=== PATIENT | female | born 1980 | race Caucasian/White ===

== ENCOUNTER 2020-03-19 08:46 | Emergency (ER) | payer MEDICAID ==
[~2020-03-19] VITALS: Ht 165.1 cm; Wt 55.5 kg
[~2020-03-19 08:46] MED LIST: ACET650T11 GT; ALBU2.5V13 NEB; ATROPINE OPTH GT; CARB15DR3 RIGHTEYE; CARB15DR91 EACH EAR; DOCU50LI24 GT; DULR RC; ESCI20TA29 GT; FLUT16SP10 NAS; GUAI10SY2 GT; HYPR10GE3 RIGHTEYE; LORA-512 GT; LORA1TAB; MAGN400O6 GT; NAPR220C15 GT; NORE1TAB21 GT; OSC500T GT; POLY17PO10; QUET25TA GT; VALP250C44 GT; ZOV200C GT
[2020-03-19 08:47] VITALS: BP 111/71
== END 2020-03-19 10:07 | disposition home or self-care (01) ==
LOC: ER 08:46
DX: K94.23 Gastrostomy malfunction (principal); G80.9 Cerebral palsy, unspecified; Z98.890 Other specified postprocedural states; Z79.899 Other long term (current) drug therapy; Y83.9 Surgical procedure, unspecified as the cause of abnormal reaction of the patient, or of later complication, without mention of misadventure at the time of the procedure
CPT/HCPCS: 43762; 99284; B4087

== ENCOUNTER 2020-12-25 13:10 | Inpatient (IN) | payer MEDICAID ==
[~2020-12-25] VITALS: Ht 167.6 cm; Wt 50.7 kg
[2020-12-25] MEDS ORDERED: normal saline 1000ml 1,000 ML IV ONE (13:30)
[2020-12-25 13:57] LABS: BASOPHILS % (AUTO) 0.3 % (0-1); EOSINOPHILS # (AUTO) 0.2 X10'3 (0-0.9); EOSINOPHILS % (AUTO) 1.7 % (0-6); HEMATOCRIT 37.9 % (35.0-45.0); HEMOGLOBIN 12.6 g/dl (12.0-16.0); LYMPHOCYTES % (AUTO) 11.3 % (21-51); MEAN CORPUSCULAR HEMOGLOBIN 32.8 PG (27.0-31.0); MEAN CORPUSCULAR HGB CONC 33.4 g/dL (33.0-36.5); MEAN CORPUSCULAR VOLUME 98.5 FL (78-98); MONOCYTES # (AUTO) 0.5 X10'3 (0-0.9); NEUTROPHILS # (AUTO) 7.4 X10'3 (1.8-7.7); NEUTROPHILS % (AUTO) 81.7 % (42-75); PLATELET COUNT 169 X10'3 (140-440); RED BLOOD COUNT 3.85 X10'6 (4.20-5.60); RED CELL DISTRIBUTION WIDTH 14.1 % (11.5-14.5); WHITE BLOOD COUNT 9.1 X10'3 (4.5-11.0)
[2020-12-25 14:14] LABS: ALANINE AMINOTRANSFERASE 47 U/L (12-78); ALBUMIN/GLOBULIN RATIO 0.7 (1.1-1.5); ALKALINE PHOSPHATASE 94 IU/L (46-116); ANION GAP 9 (8-16); ASPARTATE AMINO TRANSFERASE 34 U/L (10-37); BILIRUBIN,TOTAL 0.7 MG/DL (0.1-1.0); BLOOD UREA NITROGEN 9 MG/DL (7-18); BUN/CREATININE RATIO 15.8 (6.6-38.0); CALCIUM 8.6 MG/DL (8.5-10.1); CHLORIDE 100 MMOL/L (99-107); CREATININE 0.57 MG/DL (0.40-0.90); GLUCOSE 104 MG/DL (70-104); POTASSIUM 4.1 MMOL/L (3.5-5.1); SODIUM 136 MMOL/L (135-145); TOTAL CARBON DIOXIDE 26.6 MMOL/L (24-32); TOTAL PROTEIN 7.5 G/DL (6.4-8.2); eGFR > 90 ML/MIN
[2020-12-25 14:20] LABS: MAGNESIUM 1.9 MG/DL (1.5-2.4)
[2020-12-25] MEDS ORDERED: bisacodyl 10mg suppository rectal RC PRN ×2 (15:05→16:35)
[2020-12-25] MEDS ORDERED: metoclopramide 5 mg/ml inj IV PRN (15:05)
[2020-12-25] MEDS ORDERED: mag hydrox/Alum hydrox/simeth 30ml oral suspension PO PRN (15:05)
[2020-12-25] MEDS ORDERED: magnesium 2GM in 50ml NS 50 ML IV PRN (15:05)
[2020-12-25] MEDS ORDERED: potassium Cl 40MEQ/1/2NS 520ml 520 ML IV PRN ×2 (15:05)
[2020-12-25] MEDS ORDERED: acetaminophen 325mg tablet PO PRN ×2 (15:05)
[2020-12-25] MEDS ORDERED: magnesium hydroxide 30ml (MOM) UD suspension PO PRN (15:05)
[2020-12-25] MEDS ORDERED: ondansetron/PF 4mg/2ml inj IV PRN (15:05)
[2020-12-25] MEDS ORDERED: HYDROcodone/acetaminophen 5mg/325mg tablet PO PRN (15:05)
[2020-12-25] MEDS ORDERED: potassium Cl 20 mEq SR tablet PO PRN ×2 (15:05)
[2020-12-25] MEDS ORDERED: normal saline 1000ml 1,000 ML IV SCH (15:05)
[2020-12-25] MEDS ORDERED: magnesium Cl slow-release 64mg tablet PO PRN (15:05)
[2020-12-25] MEDS ORDERED: magnesium 4gm in 100ml NS 100 ML IV PRN (15:05)
[2020-12-25] MEDS ORDERED: PROP8DRO2 RIGHTEYE (15:19)
[2020-12-25] MEDS ORDERED: ASCO-134 PEG (15:19)
[2020-12-25] MEDS ORDERED: ALBU2.5V13 NEB (15:19)
[2020-12-25] MEDS ORDERED: CARB15DR3 RIGHTEYE (15:19)
[2020-12-25] MEDS ORDERED: ACET325T57 PEG (15:19)
[2020-12-25] MEDS ORDERED: ESCI20TA39 PEG (15:19)
[2020-12-25] MEDS ORDERED: LORA10TA7 PEG (15:19)
[2020-12-25] MEDS ORDERED: ATR0.5NEB NEB (15:19)
[2020-12-25] MEDS ORDERED: LEVE100S PEG (15:19)
[2020-12-25] MEDS ORDERED: NORE1TAB22 PEG (15:19)
[2020-12-25] MEDS ORDERED: LACT1CAP65 PEG (15:19)
[2020-12-25] MEDS ORDERED: FAMO20TA8 PEG (15:19)
[2020-12-25] MEDS ORDERED: NAPR220T67 PEG (15:19)
[2020-12-25] MEDS ORDERED: RISP2TAB85 PEG (15:19)
[2020-12-25] MEDS ORDERED: DOCU50LI24 PEG (15:19)
[2020-12-25] MEDS ORDERED: KEN0.1O TP (15:19)
[2020-12-25] MEDS ORDERED: BISA10SU60 RC (15:19)
[2020-12-25] MEDS ORDERED: SIME80TA15 PEG (15:19)
[2020-12-25] MEDS ORDERED: FLUT16SP11 BOTHNARES (15:19)
[2020-12-25] MEDS ORDERED: CALC500T12 PEG (15:19)
[2020-12-25] MEDS ORDERED: IPRA30SP (15:19)
[2020-12-25] MEDS ORDERED: SCOP1PAT11 TOP (15:19)
[2020-12-25] MEDS ORDERED: ONDA8TAB13 PEG (15:19)
[2020-12-25] MEDS ORDERED: VALP250S3 PEG (15:19)
[2020-12-25] MEDS ORDERED: MAGN400O6 PEG (15:19)
[2020-12-25] MEDS ORDERED: CefTRIAXone/D5W-Rocephin 1gm 50 ML IV ONE (15:30)
[2020-12-25 15:41] LABS: CLARITY,URINE CLEAR (Clear); COLOR,URINE YELLOW (Yellow); GLUCOSE, URINE NEGATIVE (Neg); KETONES,URINE NEGATIVE (Neg); LEUKOCYTE ESTERASE ,URINE NEGATIVE (Neg); NITRITES, URINE NEGATIVE (Neg); OCCULT BLOOD,URINE SMALL (Neg); PH,URINE 6.5 (4.8-8.0); PROTEIN,URINE NEGATIVE (Neg)
[2020-12-25 15:43] LABS: UA COLLECTION TYPE STRAIGHT CATH
[2020-12-25 15:48] LABS: MUCUS STRANDS FEW /LPF (Neg); SQUAMOUS EPITHELIAL CELL,UR FEW /LPF (FEW)
[2020-12-25 15:51] LABS: RENAL CELLS, URINE MODERATE /HPF
[2020-12-25 15:53] LABS: BACTERIA,URINE FEW /HPF (Neg); RBC,URINE 0-2 /HPF (0-2); WBC,URINE 0-4 /HPF (0-4)
[2020-12-25] MEDS ORDERED: acetaminophen 325mg tablet PEG PRN (16:35)
[2020-12-25] MEDS ORDERED: magnesium hydroxide 30ml (MOM) UD suspension PEG PRN (16:35)
[2020-12-25 17:00] VITALS: BP 118/68
--- NOTE | 2020-12-25 18:45 | NUR ---
Patient in room ED 10. I have received report from Cesilia HANKS and had the opportunity to ask questions and assume patient care.
[2020-12-25] MEDS: K and/or MAG REPLACEMENT MC SCH (20:00)
[2020-12-25] MEDS: valproate sod 250mg/5ml UD oral syrup PEG SCH ×2 (21:00→22:02)
[2020-12-25] MEDS ORDERED: temazepam 15mg capsule PO PRN (21:00)
[2020-12-25 22:00] VITALS: BP 117/59
[2020-12-25] MEDS: lactobacillus rhamnosus 10,000 MMU CELLS/CAPSULE PEG SCH (22:02)
[2020-12-25] MEDS: simethicone 80mg chew tab PEG SCH (22:03)
[2020-12-25] MEDS: risperiDONE 2mg tablet PEG SCH (22:03)
[2020-12-25] MEDS: famotidine 20mg tablet PEG SCH (22:03)
[2020-12-25] MEDS: levetiracetam 100mg/ml oral solution 5ml UD cup PEG SCH (22:03)
[2020-12-25] MEDS: mineral oil/petrolatum ophthal oint EACHEYE SCH (22:04)
[2020-12-25] MEDS: polyvinyl alcohol ophthalmic drops 15ml bottle EACHEYE SCH (22:04)
[2020-12-25] MEDS: clindamycin 300mg/D5W 50mL 50 ML IV SCH (22:06)
[2020-12-25] MEDS: enoxaparin 30mg/0.3ml syringe SQ SCH (22:06)
[2020-12-26 02:00] VITALS: BP 99/42
[2020-12-26] MEDS: clindamycin 300mg/D5W 50mL 50 ML IV SCH ×4 (02:34→20:08)
[2020-12-26] MEDS: simethicone 80mg chew tab PEG SCH ×4 (03:04→20:08)
[2020-12-26 06:00] VITALS: BP 109/67
[2020-12-26 06:12] LABS: BASOPHILS % (AUTO) 0.5 % (0-1); EOSINOPHILS # (AUTO) 0.1 X10'3 (0-0.9); EOSINOPHILS % (AUTO) 1.3 % (0-6); HEMATOCRIT 33.6 % (35.0-45.0); HEMOGLOBIN 11.7 g/dl (12.0-16.0); LYMPHOCYTES # (AUTO) 1.6 X10'3 (1.1-4.8); LYMPHOCYTES % (AUTO) 16.2 % (21-51); MEAN CORPUSCULAR HEMOGLOBIN 34.1 PG (27.0-31.0); MEAN CORPUSCULAR HGB CONC 34.8 g/dL (33.0-36.5); MEAN CORPUSCULAR VOLUME 97.8 FL (78-98); MEAN PLATELET VOLUME 8.4 FL (7.4-10.4); MONOCYTES # (AUTO) 0.7 X10'3 (0-0.9); MONOCYTES % (AUTO) 6.4 % (2-12); NEUTROPHILS # (AUTO) 7.7 X10'3 (1.8-7.7); NEUTROPHILS % (AUTO) 75.6 % (42-75); PLATELET COUNT 168 X10'3 (140-440); RED BLOOD COUNT 3.44 X10'6 (4.20-5.60); WHITE BLOOD COUNT 10.1 X10'3 (4.5-11.0)
--- NOTE | 2020-12-26 06:24 | NUR ---
Problems reprioritized. Patient report given, questions answered & plan of care reviewed with Cesilia HANKS.
[2020-12-26 06:32] LABS: ALANINE AMINOTRANSFERASE 51 U/L (12-78); ALBUMIN 2.5 G/DL (3.4-5.0); ALBUMIN/GLOBULIN RATIO 0.6 (1.1-1.5); ALKALINE PHOSPHATASE 89 IU/L (46-116); ANION GAP 9 (8-16); ASPARTATE AMINO TRANSFERASE 38 U/L (10-37); BILIRUBIN,TOTAL 0.4 MG/DL (0.1-1.0); BLOOD UREA NITROGEN 6 MG/DL (7-18); BUN/CREATININE RATIO 13.6 (6.6-38.0); CALCIUM 8.3 MG/DL (8.5-10.1); CHLORIDE 102 MMOL/L (99-107); CREATININE 0.44 MG/DL (0.40-0.90); GLUCOSE 75 MG/DL (70-104); MAGNESIUM 1.8 MG/DL (1.5-2.4); POTASSIUM 3.7 MMOL/L (3.5-5.1); SODIUM 136 MMOL/L (135-145); TOTAL CARBON DIOXIDE 24.6 MMOL/L (24-32); TOTAL PROTEIN 6.8 G/DL (6.4-8.2); eGFR > 90 ML/MIN
--- NOTE | 2020-12-26 07:09 | NUR ---
Patient in room ORTHO 4024. I have received report from An HANKS and had the opportunity to ask questions and assume patient care.
[2020-12-26] MEDS: K and/or MAG REPLACEMENT MC SCH ×2 (08:00→20:00)
[2020-12-26] MEDS ORDERED: docusate sodium 100mg/10ml UD cup PEG SCH (08:00)
[2020-12-26] MEDS ORDERED: CefTRIAXone/D5W-Rocephin 1gm 50 ML IV SCH (08:00)
[2020-12-26] MEDS: citalopram 20mg tablet PEG SCH (08:52)
[2020-12-26] MEDS: levetiracetam 100mg/ml oral solution 5ml UD cup PEG SCH ×2 (08:52→20:08)
[2020-12-26] MEDS: lactobacillus rhamnosus 10,000 MMU CELLS/CAPSULE PEG SCH ×2 (08:52→20:08)
[2020-12-26] MEDS: famotidine 20mg tablet PEG SCH ×2 (08:52→20:08)
[2020-12-26] MEDS: fluticasone nasal spray 16GM bottle NS SCH (08:57)
[2020-12-26] MEDS: polyvinyl alcohol ophthalmic drops 15ml bottle EACHEYE SCH ×3 (08:57→20:09)
[2020-12-26] MEDS: mineral oil/petrolatum ophthal oint EACHEYE SCH (08:58)
--- NOTE | 2020-12-26 09:34 | NUR ---
TF Consult: Pt admit DX possible chronic aspiration w/ aspiration PNA and hx G-tube as well as cerebral palsy per EMR. TF to start today per MD. RD attempted to contact pt care facility [facility] [phone] provided by RN though no answer at this time. Pt current wt not scaled and unable to obtain wt given no bed scale and bed bound status at this time per RN. Will use IBW for EN recs and adjust as medically indicated. RN reports pt tolerating meds via G-tube though abdomen appears distended and unsure of LBM at this time. Pt does have routine bowel care ordered per EMR. Will monitor for TF tolerance and adjustment needs as medically indicated. Rec: 1. Continuous TF via G-tube per MD using Jevity 1.2 at 60ml/hr goal; to provide 1440ml volume, 1166ml free water, 1728 kcals, and 80g protein. 2. additional water flush 65ml Q4; adjust as medically indicated w/ Na 136 this AM on NS 3. PALB Q /; daily wts 4. routine bowel care 5. monitor for TF tolerance 6. scaled wt this admit Addendum: 12/26/20 at [address] Amended: Links added.
[2020-12-26] MEDS: risperiDONE 2mg tablet PEG SCH ×2 (09:46→20:08)
[2020-12-26 10:00] VITALS: BP 110/70
[2020-12-26] MEDS ORDERED: ALBUTEROL INHALER 1 PUFF/90 MCG INHALER IH PRN (10:50)
[2020-12-26] MEDS: valproate sod 250mg/5ml UD oral syrup PEG SCH ×4 (11:05→20:08)
[2020-12-26 11:15] LABS: PREALBUMIN 16.3 MG/DL (19-36)
--- NOTE | 2020-12-26 12:04 | NUR ---
F/u: RD reached [facility] facility RN Abigail who reports pt wt last week 111.6 pounds has been between 111.6-112.6 w/ occasional fluctuations past 3 weeks overall stable. Per facility RN, pt receives bolus feeds 5x daily using Isosource HN 360ml w/ 80ml free water before and 120ml free water following boluses. This provides 1800ml volume, 2160 kcals, total 2458ml free water, and 97g protein daily. Isosource HN contains no fiber and provides 43kcals/kg, 1.91g/kg protein, and 48ml/kg/day total fluids using pt reported wt 50.7kg exceeding pt estimated nutrient needs. Pt would benefit from fiber-containing solution as well as continuous feeds this admit to optimize protein intake and EN tolerance as seen by recs below. Pt may benefit from EN adjustments to optimize EN tolerance at care facility; updated facility bolus EN recs provided below given pt needs at this time using IBW. TF Consult: Pt admit DX possible chronic aspiration w/ aspiration PNA and hx G-tube as well as cerebral palsy per EMR. TF to start today per MD. RD attempted to contact pt care facility [facility] [phone] provided by RN though no answer at this time. Pt current wt not scaled and unable to obtain wt given no bed scale and bed bound status at this time per RN. Will use IBW for EN recs and adjust as medically indicated. RN reports pt tolerating meds via G-tube though abdomen appears distended and unsure of LBM at this time. Pt does have routine bowel care ordered per EMR. Will monitor for TF tolerance and adjustment needs as medically indicated. Rec: 1. Continuous TF via G-tube per MD using Jevity 1.2 at 60ml/hr goal; to provide 1440ml volume, 1166ml free water, 1728 kcals, and 80g protein. 2. additional water flush 65ml Q4; adjust as medically indicated w/ Na 136 this AM on NS 3. PALB Q /Th; daily wts 4. routine bowel care 5. monitor for TF tolerance 6. scaled wt this admit FACILITY BOLUS RECS: 1. Bolus G-tube feeds using Jevity 1.5 or equivalent at 295ml bolus 4x daily; to provide 1180ml volume, 897ml free water, 1770kcals, and 75g protein. 2. water flush 100ml before and after boluses 3. additional 360ml free water daily 4. outpatient RD to titrate pt TF recs given protein, kcal, and hydration needs Addendum: 12/26/20 at [address] Amended: Links added.
[2020-12-26] MEDS ORDERED: acetaminophen 325mg tablet PEG PRN ×2 (13:39)
[2020-12-26] MEDS: NORETHINDRONE ETHINYL ESTRAD PEG SCH (13:57)
[2020-12-26] MEDS: albuterol 2.5 MG/3 ML nebule NEB PRN (14:54)
[2020-12-26 18:00] VITALS: BP 139/79
--- NOTE | 2020-12-26 18:52 | NUR ---
Problems reprioritized. Patient report given, questions answered & plan of care reviewed with Nila Gerber.
[2020-12-26] MEDS: enoxaparin 30mg/0.3ml syringe SQ SCH (20:09)
[2020-12-26 22:00] VITALS: BP 126/68
[2020-12-27] MEDS: simethicone 80mg chew tab PEG SCH ×4 (01:52→20:13)
[2020-12-27] MEDS: clindamycin 300mg/D5W 50mL 50 ML IV SCH ×2 (01:52→08:22)
[2020-12-27] MEDS: albuterol 2.5 MG/3 ML nebule NEB PRN (04:13)
[2020-12-27 06:00] VITALS: BP 137/66
[2020-12-27 06:13] LABS: BASOPHILS % (AUTO) 0.2 % (0-1); EOSINOPHILS # (AUTO) 0.1 X10'3 (0-0.9); HEMATOCRIT 34.1 % (35.0-45.0); HEMOGLOBIN 11.7 g/dl (12.0-16.0); LYMPHOCYTES # (AUTO) 1.1 X10'3 (1.1-4.8); LYMPHOCYTES % (AUTO) 15.7 % (21-51); MEAN CORPUSCULAR HEMOGLOBIN 33.5 PG (27.0-31.0); MEAN CORPUSCULAR HGB CONC 34.4 g/dL (33.0-36.5); MEAN CORPUSCULAR VOLUME 97.6 FL (78-98); MEAN PLATELET VOLUME 8.1 FL (7.4-10.4); MONOCYTES # (AUTO) 0.5 X10'3 (0-0.9); MONOCYTES % (AUTO) 8.1 % (2-12); PLATELET COUNT 169 X10'3 (140-440); RED BLOOD COUNT 3.49 X10'6 (4.20-5.60); RED CELL DISTRIBUTION WIDTH 14.2 % (11.5-14.5); WHITE BLOOD COUNT 6.7 X10'3 (4.5-11.0)
[2020-12-27 06:22] LABS: ALANINE AMINOTRANSFERASE 46 U/L (12-78); ALBUMIN 2.5 G/DL (3.4-5.0); ALBUMIN/GLOBULIN RATIO 0.6 (1.1-1.5); ALKALINE PHOSPHATASE 111 IU/L (46-116); ANION GAP 9 (8-16); ASPARTATE AMINO TRANSFERASE 29 U/L (10-37); BILIRUBIN,TOTAL 0.3 MG/DL (0.1-1.0); BLOOD UREA NITROGEN 8 MG/DL (7-18); BUN/CREATININE RATIO 13.8 (6.6-38.0); CHLORIDE 100 MMOL/L (99-107); CREATININE 0.58 MG/DL (0.40-0.90); GLUCOSE 125 MG/DL (70-104); MAGNESIUM 1.8 MG/DL (1.5-2.4); POTASSIUM 3.7 MMOL/L (3.5-5.1); SODIUM 134 MMOL/L (135-145); TOTAL CARBON DIOXIDE 24.9 MMOL/L (24-32); TOTAL PROTEIN 6.7 G/DL (6.4-8.2); eGFR > 90 ML/MIN
--- NOTE | 2020-12-27 06:31 | NUR ---
Problems reprioritized. Patient report given, questions answered & plan of care reviewed with LATONYA Nova.
[2020-12-27] MEDS: K and/or MAG REPLACEMENT MC SCH ×2 (06:45→20:00)
[2020-12-27] MEDS: famotidine 20mg tablet PEG SCH ×2 (08:17→20:13)
[2020-12-27] MEDS: citalopram 20mg tablet PEG SCH (08:17)
[2020-12-27] MEDS: lactobacillus rhamnosus 10,000 MMU CELLS/CAPSULE PEG SCH ×2 (08:17→20:13)
[2020-12-27] MEDS: docusate sodium 100mg/10ml UD cup PEG SCH (08:17)
[2020-12-27] MEDS: risperiDONE 2mg tablet PEG SCH ×2 (08:17→20:13)
[2020-12-27] MEDS: valproate sod 250mg/5ml UD oral syrup PEG SCH ×4 (08:17→20:13)
[2020-12-27] MEDS: polyvinyl alcohol ophthalmic drops 15ml bottle EACHEYE SCH ×3 (08:18→20:14)
[2020-12-27] MEDS: fluticasone nasal spray 16GM bottle NS SCH (08:18)
[2020-12-27] MEDS: levetiracetam 100mg/ml oral solution 5ml UD cup PEG SCH ×2 (08:19→20:13)
[2020-12-27] MEDS: NORETHINDRONE ETHINYL ESTRAD PEG SCH (08:19)
[2020-12-27 10:00] VITALS: BP 122/63
[2020-12-27] MEDS: piperacillin/tazo 3.375gm/50ml 50 ML IV SCH ×3 (10:57→23:55)
[2020-12-27 18:00] VITALS: BP 134/45
--- NOTE | 2020-12-27 18:42 | NUR ---
Problems reprioritized. Patient report given, questions answered & plan of care reviewed with TORSTEN HANKS.
[2020-12-27] MEDS: enoxaparin 30mg/0.3ml syringe SQ SCH (20:14)
[2020-12-27] MEDS: mineral oil/petrolatum ophthal oint EACHEYE SCH (20:15)
[2020-12-27 22:00] VITALS: BP 105/61
--- NOTE | 2020-12-28 02:28 | NUR ---
Reference#[id number] for [facility] bed that was placed as ordered. The bed is not working and I had tried to fix the bed and used the manual and followed instructions without success. I spoke to the sales representative education courses tech jam; Hector from [facility] and was unable to fix the bed. He instructed me to take patient off the bed and put her back on her old bed and he would come by in the morning and swap out the bed and send the broken bed to be fixed.
[2020-12-28] MEDS: simethicone 80mg chew tab PEG SCH ×4 (02:53→20:12)
[2020-12-28 06:00] VITALS: BP 108/56
--- NOTE | 2020-12-28 06:13 | NUR ---
Problems reprioritized. Patient report given, questions answered & plan of care reviewed with LATONYA Nova.
--- NOTE | 2020-12-28 06:46 | NUR ---
Patient in room ORTHO 4017. I have received report from TORSTEN HANKS and had the opportunity to ask questions and assume patient care.
[2020-12-28 07:00] VITALS: BP 118/60
[2020-12-28] MEDS: risperiDONE 2mg tablet PEG SCH ×2 (07:35→20:12)
[2020-12-28] MEDS: famotidine 20mg tablet PEG SCH ×2 (07:35→20:12)
[2020-12-28] MEDS: valproate sod 250mg/5ml UD oral syrup PEG SCH ×4 (07:35→20:13)
[2020-12-28] MEDS: docusate sodium 100mg/10ml UD cup PEG SCH (07:35)
[2020-12-28] MEDS: lactobacillus rhamnosus 10,000 MMU CELLS/CAPSULE PEG SCH ×2 (07:35→20:12)
[2020-12-28] MEDS: citalopram 20mg tablet PEG SCH (07:35)
[2020-12-28] MEDS: piperacillin/tazo 3.375gm/50ml 50 ML IV SCH ×2 (07:36→16:30)
[2020-12-28 07:41] LABS: BASOPHILS % (AUTO) 0.6 % (0-1); EOSINOPHILS # (AUTO) 0.1 X10'3 (0-0.9); EOSINOPHILS % (AUTO) 1.9 % (0-6); HEMATOCRIT 35.5 % (35.0-45.0); HEMOGLOBIN 11.9 g/dl (12.0-16.0); LYMPHOCYTES # (AUTO) 1.1 X10'3 (1.1-4.8); LYMPHOCYTES % (AUTO) 17.7 % (21-51); MEAN CORPUSCULAR HEMOGLOBIN 32.7 PG (27.0-31.0); MEAN CORPUSCULAR HGB CONC 33.5 g/dL (33.0-36.5); MEAN CORPUSCULAR VOLUME 97.5 FL (78-98); MEAN PLATELET VOLUME 8.6 FL (7.4-10.4); MONOCYTES # (AUTO) 0.5 X10'3 (0-0.9); MONOCYTES % (AUTO) 8.1 % (2-12); NEUTROPHILS # (AUTO) 4.5 X10'3 (1.8-7.7); NEUTROPHILS % (AUTO) 71.7 % (42-75); PLATELET COUNT 210 X10'3 (140-440); RED BLOOD COUNT 3.65 X10'6 (4.20-5.60); WHITE BLOOD COUNT 6.2 X10'3 (4.5-11.0)
[2020-12-28] MEDS: levetiracetam 100mg/ml oral solution 5ml UD cup PEG SCH ×2 (07:55→20:12)
[2020-12-28] MEDS: NORETHINDRONE ETHINYL ESTRAD PEG SCH (07:55)
[2020-12-28] MEDS: fluticasone nasal spray 16GM bottle NS SCH (07:55)
[2020-12-28] MEDS: polyvinyl alcohol ophthalmic drops 15ml bottle EACHEYE SCH ×3 (07:55→20:13)
[2020-12-28] MEDS: K and/or MAG REPLACEMENT MC SCH ×2 (08:00→20:00)
[2020-12-28 08:06] LABS: ALANINE AMINOTRANSFERASE 40 U/L (12-78); ALBUMIN 2.5 G/DL (3.4-5.0); ALBUMIN/GLOBULIN RATIO 0.6 (1.1-1.5); ALKALINE PHOSPHATASE 127 IU/L (46-116); ANION GAP 11 (8-16); ASPARTATE AMINO TRANSFERASE 20 U/L (10-37); BILIRUBIN,TOTAL 0.3 MG/DL (0.1-1.0); BLOOD UREA NITROGEN 7 MG/DL (7-18); BUN/CREATININE RATIO 15.9 (6.6-38.0); CALCIUM 8.8 MG/DL (8.5-10.1); CHLORIDE 101 MMOL/L (99-107); CREATININE 0.44 MG/DL (0.40-0.90); GLUCOSE 99 MG/DL (70-104); MAGNESIUM 1.8 MG/DL (1.5-2.4); POTASSIUM 4.2 MMOL/L (3.5-5.1); SODIUM 137 MMOL/L (135-145); TOTAL CARBON DIOXIDE 24.7 MMOL/L (24-32); eGFR > 90 ML/MIN
[2020-12-28 18:00] VITALS: BP 105/44
--- NOTE | 2020-12-28 18:32 | NUR ---
Problems reprioritized. Patient report given, questions answered & plan of care reviewed with TORSTEN HANKS.
[2020-12-28] MEDS: enoxaparin 30mg/0.3ml syringe SQ SCH (20:12)
[2020-12-28] MEDS: mineral oil/petrolatum ophthal oint EACHEYE SCH (20:13)
[2020-12-28 22:00] VITALS: BP 109/53
[2020-12-29] MEDS: piperacillin/tazo 3.375gm/50ml 50 ML IV SCH ×3 (00:04→16:35)
[2020-12-29] MEDS: simethicone 80mg chew tab PEG SCH ×4 (02:49→20:48)
[2020-12-29 06:00] VITALS: BP 106/53
--- NOTE | 2020-12-29 06:35 | NUR ---
Problems reprioritized. Patient report given, questions answered & plan of care reviewed with LATONYA Whitley.
[2020-12-29 07:35] LABS: BASOPHILS # (AUTO) 0.1 X10'3 (0-0.2); BASOPHILS % (AUTO) 1.3 % (0-1); EOSINOPHILS # (AUTO) 0.2 X10'3 (0-0.9); EOSINOPHILS % (AUTO) 4.1 % (0-6); HEMATOCRIT 37.4 % (35.0-45.0); HEMOGLOBIN 12.4 g/dl (12.0-16.0); LYMPHOCYTES # (AUTO) 1.6 X10'3 (1.1-4.8); LYMPHOCYTES % (AUTO) 36.4 % (21-51); MEAN CORPUSCULAR HEMOGLOBIN 32.5 PG (27.0-31.0); MEAN CORPUSCULAR HGB CONC 33.3 g/dL (33.0-36.5); MEAN CORPUSCULAR VOLUME 97.7 FL (78-98); MEAN PLATELET VOLUME 8.3 FL (7.4-10.4); MONOCYTES # (AUTO) 0.4 X10'3 (0-0.9); MONOCYTES % (AUTO) 8.3 % (2-12); NEUTROPHILS # (AUTO) 2.2 X10'3 (1.8-7.7); NEUTROPHILS % (AUTO) 49.9 % (42-75); PLATELET COUNT 226 X10'3 (140-440); RED BLOOD COUNT 3.83 X10'6 (4.20-5.60); WHITE BLOOD COUNT 4.4 X10'3 (4.5-11.0)
[2020-12-29 07:56] LABS: ALANINE AMINOTRANSFERASE 38 U/L (12-78); ALBUMIN 2.5 G/DL (3.4-5.0); ALBUMIN/GLOBULIN RATIO 0.5 (1.1-1.5); ALKALINE PHOSPHATASE 130 IU/L (46-116); ANION GAP 8 (8-16); ASPARTATE AMINO TRANSFERASE 21 U/L (10-37); BILIRUBIN,TOTAL 0.3 MG/DL (0.1-1.0); BLOOD UREA NITROGEN 9 MG/DL (7-18); BUN/CREATININE RATIO 19.6 (6.6-38.0); CALCIUM 8.8 MG/DL (8.5-10.1); CHLORIDE 101 MMOL/L (99-107); CREATININE 0.46 MG/DL (0.40-0.90); GLUCOSE 103 MG/DL (70-104); POTASSIUM 4.3 MMOL/L (3.5-5.1); SODIUM 136 MMOL/L (135-145); TOTAL CARBON DIOXIDE 27.2 MMOL/L (24-32); TOTAL PROTEIN 7.1 G/DL (6.4-8.2); eGFR > 90 ML/MIN
[2020-12-29] MEDS: K and/or MAG REPLACEMENT MC SCH ×2 (08:00→20:00)
[2020-12-29] MEDS: docusate sodium 100mg/10ml UD cup PEG SCH (08:00)
--- NOTE | 2020-12-29 10:44 | NUR ---
Reassessment: Pt tolerating Continuous GTF at goal GRV WNL. Na 136 w/ minimal water flush recs provided below off NS now. LBM 12/28 receiving routine colace and PRN MoM 12/26. Will continue to monitor for TF tolerance and adjustment needs as medically indicated. Rec: 1. Continuous TF via G-tube per MD using Jevity 1.2 at 60ml/hr goal; to provide 1440ml volume, 1166ml free water, 1728 kcals, and 80g protein. 2. additional water flush 65ml Q4; adjust as medically indicated w/ Na 136 this AM on NS 3. PALB Q /; daily wts 4. routine bowel care 5. monitor for TF tolerance 6. scaled wt this admit FACILITY BOLUS RECS: 1. Bolus G-tube feeds using Jevity 1.5 or equivalent at 295ml bolus 4x daily; to provide 1180ml volume, 897ml free water, 1770kcals, and 75g protein. 2. water flush 100ml before and after boluses 3. additional 360ml free water daily 4. outpatient RD to titrate pt TF recs given protein, kcal, and hydration needs Addendum: 12/29/20 at [address] Amended: Links added.
[2020-12-29] MEDS: polyvinyl alcohol ophthalmic drops 15ml bottle EACHEYE SCH ×3 (13:00→23:47)
[2020-12-29] MEDS: risperiDONE 2mg tablet PEG SCH ×2 (13:05→20:45)
[2020-12-29] MEDS: citalopram 20mg tablet PEG SCH (13:05)
[2020-12-29] MEDS: valproate sod 250mg/5ml UD oral syrup PEG SCH ×4 (13:05→23:46)
[2020-12-29] MEDS: famotidine 20mg tablet PEG SCH ×2 (13:05→20:45)
[2020-12-29] MEDS: lactobacillus rhamnosus 10,000 MMU CELLS/CAPSULE PEG SCH ×2 (13:05→20:45)
[2020-12-29] MEDS: levetiracetam 100mg/ml oral solution 5ml UD cup PEG SCH ×2 (13:08→20:45)
[2020-12-29] MEDS: fluticasone nasal spray 16GM bottle NS SCH (13:09)
[2020-12-29] MEDS: NORETHINDRONE ETHINYL ESTRAD PEG SCH (13:10)
[2020-12-29 18:30] VITALS: BP 100/57
[2020-12-29] MEDS: enoxaparin 30mg/0.3ml syringe SQ SCH (20:44)
[2020-12-29 22:30] VITALS: BP 102/56
[2020-12-29] MEDS: mineral oil/petrolatum ophthal oint EACHEYE SCH (23:47)
[2020-12-30] MEDS: piperacillin/tazo 3.375gm/50ml 50 ML IV SCH ×2 (00:08→09:30)
[2020-12-30] MEDS: simethicone 80mg chew tab PEG SCH ×2 (02:27→09:37)
[2020-12-30 06:00] VITALS: BP 104/55
[2020-12-30 07:51] LABS: BASOPHILS % (AUTO) 0.7 % (0-1); EOSINOPHILS # (AUTO) 0.1 X10'3 (0-0.9); EOSINOPHILS % (AUTO) 1.9 % (0-6); HEMATOCRIT 38.4 % (35.0-45.0); LYMPHOCYTES # (AUTO) 1.6 X10'3 (1.1-4.8); LYMPHOCYTES % (AUTO) 22.1 % (21-51); MEAN CORPUSCULAR HEMOGLOBIN 32.9 PG (27.0-31.0); MEAN CORPUSCULAR HGB CONC 33.8 g/dL (33.0-36.5); MEAN CORPUSCULAR VOLUME 97.2 FL (78-98); MONOCYTES # (AUTO) 0.6 X10'3 (0-0.9); MONOCYTES % (AUTO) 8.1 % (2-12); NEUTROPHILS # (AUTO) 4.9 X10'3 (1.8-7.7); NEUTROPHILS % (AUTO) 67.2 % (42-75); PLATELET COUNT 303 X10'3 (140-440); RED BLOOD COUNT 3.95 X10'6 (4.20-5.60); RED CELL DISTRIBUTION WIDTH 14.3 % (11.5-14.5); WHITE BLOOD COUNT 7.3 X10'3 (4.5-11.0)
[2020-12-30] MEDS: K and/or MAG REPLACEMENT MC SCH (08:00)
[2020-12-30 08:12] LABS: ALANINE AMINOTRANSFERASE 45 U/L (12-78); ALBUMIN 2.6 G/DL (3.4-5.0); ALBUMIN/GLOBULIN RATIO 0.5 (1.1-1.5); ALKALINE PHOSPHATASE 135 IU/L (46-116); ANION GAP 10 (8-16); ASPARTATE AMINO TRANSFERASE 25 U/L (10-37); BILIRUBIN,TOTAL 0.3 MG/DL (0.1-1.0); BLOOD UREA NITROGEN 11 MG/DL (7-18); BUN/CREATININE RATIO 23.4 (6.6-38.0); CALCIUM 8.9 MG/DL (8.5-10.1); CHLORIDE 101 MMOL/L (99-107); CREATININE 0.47 MG/DL (0.40-0.90); GLUCOSE 75 MG/DL (70-104); MAGNESIUM 2.1 MG/DL (1.5-2.4); POTASSIUM 4.4 MMOL/L (3.5-5.1); SODIUM 136 MMOL/L (135-145); TOTAL CARBON DIOXIDE 25.3 MMOL/L (24-32); TOTAL PROTEIN 7.5 G/DL (6.4-8.2); eGFR > 90 ML/MIN
[2020-12-30] MEDS: levetiracetam 100mg/ml oral solution 5ml UD cup PEG SCH (09:32)
[2020-12-30] MEDS: docusate sodium 100mg/10ml UD cup PEG SCH (09:33)
[2020-12-30] MEDS: valproate sod 250mg/5ml UD oral syrup PEG SCH (09:36)
[2020-12-30] MEDS: famotidine 20mg tablet PEG SCH (09:37)
[2020-12-30] MEDS: citalopram 20mg tablet PEG SCH (09:37)
[2020-12-30] MEDS: risperiDONE 2mg tablet PEG SCH (09:37)
[2020-12-30] MEDS: lactobacillus rhamnosus 10,000 MMU CELLS/CAPSULE PEG SCH (09:37)
[2020-12-30] MEDS: NORETHINDRONE ETHINYL ESTRAD PEG SCH (09:38)
[2020-12-30] MEDS ORDERED: AMOX250S62 PO (09:44)
[2020-12-30] MEDS: fluticasone nasal spray 16GM bottle NS SCH (09:44)
[2020-12-30] MEDS: polyvinyl alcohol ophthalmic drops 15ml bottle EACHEYE SCH (09:46)
== END 2020-12-30 12:35 | disposition home or self-care (01) | DRG 137 ==
LOC: ER 13:10 → ED HOLD 15:04 → ORTHO 4S 17:00
PROVIDERS: ADMIT Family Medicine; ATTEND Family Medicine
DX: J69.0 Pneumonitis due to inhalation of food and vomit (principal); J96.01 Acute respiratory failure with hypoxia; G40.909 Epilepsy, unspecified, not intractable, without status epilepticus; G80.9 Cerebral palsy, unspecified; J30.9 Allergic rhinitis, unspecified; Z20.822 Contact with and (suspected) exposure to COVID-19; F32.9 Major depressive disorder, single episode, unspecified; F91.9 Conduct disorder, unspecified
CPT/HCPCS: 36415; 71045; 80053; 81001; 82948; 83605; 83735; 83880; 84134; 84145; 85025; 87040; 87081; 87635; 93005; 94640; 94760; 97110; 97116; 97163; 97530; 99285; G0378; J0696; J1650; J2543; J3490; J7030

== ENCOUNTER 2021-10-06 11:22 | Day surgery (SDC) | payer MEDICAID ==
[2021-10-06] VITALS (9 sets, daily range): BP systolic 106–131; BP diastolic 51–75
[~2021-10-06] VITALS: Ht 167.6 cm; Wt 50.3 kg
[~2021-10-06 11:22] MED LIST changes: +ACET325T57 PEG; -ACET650T11 GT; +ASCO-134 PEG; +ATR0.5NEB NEB; -ATROPINE OPTH GT; +BISA10SU60 RC; +CALC500T12 PEG; -CARB15DR91 EACH EAR; -DOCU50LI24 GT; +DOCU50LI24 PEG; -DULR RC; -ESCI20TA29 GT; +ESCI20TA39 PEG; +FAMO20TA8 PEG; -FLUT16SP10 NAS; +FLUT16SP11 BOTHNARES; -GUAI10SY2 GT; -HYPR10GE3 RIGHTEYE; +IPRA30SP; +KEN0.1O TP; +LACT1CAP65 PEG; +LEVE100S PEG; -LORA-512 GT; +LORA10TA7 PEG; -LORA1TAB; -MAGN400O6 GT; +MAGN400O6 PEG; -NAPR220C15 GT; +NAPR220T67 PEG; -NORE1TAB21 GT; +NORE1TAB22 PEG; +ONDA8TAB13 PEG; -OSC500T GT; -POLY17PO10; +PROP8DRO2 RIGHTEYE; -QUET25TA GT; +RISP2TAB85 PEG; +SCOP1PAT11 TOP; +SIME80TA15 PEG; -VALP250C44 GT; +VALP250S3 PEG; -ZOV200C GT
[2021-10-06 12:39] LABS: BASOPHILS # (AUTO) 0.1 X10'3 (0-0.2); BASOPHILS % (AUTO) 0.9 % (0-1); EOSINOPHILS % (AUTO) 0.5 % (0-6); HEMOGLOBIN 13.2 g/dl (12.0-16.0); LYMPHOCYTES # (AUTO) 1.1 X10'3 (1.1-4.8); LYMPHOCYTES % (AUTO) 19.8 % (21-51); MEAN CORPUSCULAR HEMOGLOBIN 33.5 PG (27.0-31.0); MEAN CORPUSCULAR HGB CONC 34.7 g/dL (33.0-36.5); MEAN CORPUSCULAR VOLUME 96.6 FL (78-98); MEAN PLATELET VOLUME 8.2 FL (7.4-10.4); MONOCYTES # (AUTO) 0.3 X10'3 (0-0.9); MONOCYTES % (AUTO) 5.8 % (2-12); NEUTROPHILS # (AUTO) 4.2 X10'3 (1.8-7.7); PLATELET COUNT 240 X10'3 (140-440); RED BLOOD COUNT 3.94 X10'6 (4.20-5.60); RED CELL DISTRIBUTION WIDTH 12.8 % (11.5-14.5); WHITE BLOOD COUNT 5.8 X10'3 (4.5-11.0)
[2021-10-06] MEDS ORDERED: [UNRECOGNIZED DRUG - OTHER] PO (12:59)
[2021-10-06] MEDS ORDERED: CARB15DR91 EACH EAR (12:59)
[2021-10-06] MEDS ORDERED: POLY1DRO2 OP (12:59)
[2021-10-06] MEDS ORDERED: NYSPWD TP (12:59)
[2021-10-06] MEDS ORDERED: fentaNYL/PF 50MCG/1 ML 2ML syringe ONE (12:59)
[2021-10-06] MEDS ORDERED: midazolam 1 mg/ML 2ml injection ONE (12:59)
[2021-10-06] MEDS ORDERED: gelatin sponge, absorbable (Gelfoam 12-7MM) sponge TP ONE (13:41)
== END 2021-10-06 16:10 | disposition home or self-care (01) ==
LOC: SSTAY O 11:22
PROVIDERS: ATTEND Preventive Medicine Aerospace Medicine
DX: R16.0 Hepatomegaly, not elsewhere classified (principal)
CPT/HCPCS: 36415; 47000; 76942; 85025; 85610; 99152; J2250; J3010; 99153

== ENCOUNTER 2021-12-18 14:42 | Emergency (ER) | payer MEDICAID ==
[~2021-12-18] VITALS: Ht 165.1 cm; Wt 50.0 kg
[~2021-12-18 14:42] MED LIST changes: -CARB15DR3 RIGHTEYE; +CARB15DR91 EACH EAR; -KEN0.1O TP; +NYSPWD TP; +POLY1DRO2 OP; -PROP8DRO2 RIGHTEYE; +[UNRECOGNIZED DRUG - OTHER] PO
--- NOTE | 2021-12-18 16:02 | NUR ---
Pt awaiting MD. No apparent distress or needs at this time. Industrial Sales Engineer at bedside.
[2021-12-18 17:03] LABS: BASOPHILS # (AUTO) 0.1 X10'3 (0-0.2); BASOPHILS % (AUTO) 1.5 % (0-1); EOSINOPHILS # (AUTO) 0.1 X10'3 (0-0.9); EOSINOPHILS % (AUTO) 1.9 % (0-6); HEMATOCRIT 35.3 % (35.0-45.0); HEMOGLOBIN 12.1 g/dl (12.0-16.0); LYMPHOCYTES # (AUTO) 1.7 X10'3 (1.1-4.8); LYMPHOCYTES % (AUTO) 23.7 % (21-51); MEAN CORPUSCULAR HEMOGLOBIN 32.9 PG (27.0-31.0); MEAN CORPUSCULAR HGB CONC 34.3 g/dL (33.0-36.5); MEAN CORPUSCULAR VOLUME 96.1 FL (78-98); MEAN PLATELET VOLUME 8.1 FL (7.4-10.4); MONOCYTES # (AUTO) 0.6 X10'3 (0-0.9); MONOCYTES % (AUTO) 7.9 % (2-12); NEUTROPHILS # (AUTO) 4.6 X10'3 (1.8-7.7); PLATELET COUNT 243 X10'3 (140-440); RED BLOOD COUNT 3.68 X10'6 (4.20-5.60); RED CELL DISTRIBUTION WIDTH 12.7 % (11.5-14.5)
[2021-12-18 17:13] LABS: ALANINE AMINOTRANSFERASE 40 U/L (12-78); ALBUMIN 2.9 G/DL (3.4-5.0); ALBUMIN/GLOBULIN RATIO 0.7 (1.1-1.5); ALKALINE PHOSPHATASE 112 IU/L (46-116); ANION GAP 6 (8-16); ASPARTATE AMINO TRANSFERASE 26 U/L (10-37); BILIRUBIN,TOTAL 0.4 MG/DL (0.1-1.0); BLOOD UREA NITROGEN 13 MG/DL (7-18); BUN/CREATININE RATIO 32.5 (6.6-38.0); CALCIUM 8.3 MG/DL (8.5-10.1); CHLORIDE 103 MMOL/L (99-107); GLUCOSE 79 MG/DL (70-104); POTASSIUM 4.4 MMOL/L (3.5-5.1); SODIUM 136 MMOL/L (135-145); TOTAL CARBON DIOXIDE 27.3 MMOL/L (24-32); TOTAL PROTEIN 7.2 G/DL (6.4-8.2); eGFR > 90 ML/MIN
--- NOTE | 2021-12-18 17:17 | NUR ---
Pt awake, cooperative for covid swab, no needs at this time. Ui Application Developer at bedside.
[2021-12-18 18:10] VITALS: BP 118/73
[2021-12-18] MEDS ORDERED: AMOX500C2 PO (18:16)
== END 2021-12-18 18:46 | disposition home or self-care (01) ==
LOC: ER 14:42
DX: J69.0 Pneumonitis due to inhalation of food and vomit (principal); Z20.822 Contact with and (suspected) exposure to COVID-19; G80.9 Cerebral palsy, unspecified; H91.93 Unspecified hearing loss, bilateral; Z79.2 Long term (current) use of antibiotics; Z79.899 Other long term (current) drug therapy
CPT/HCPCS: 36415; 71045; 80053; 85025; 87635; 99285; C9803

== ENCOUNTER 2022-03-22 08:34 | Emergency (ER) | payer MEDICAID ==
[~2022-03-22] VITALS: Ht 175.3 cm; Wt 54.5 kg
[2022-03-22 09:16] LABS: BASOPHILS % (AUTO) 0.6 % (0-1); EOSINOPHILS % (AUTO) 0.8 % (0-6); HEMATOCRIT 38.6 % (35.0-45.0); HEMOGLOBIN 13.1 g/dl (12.0-16.0); LYMPHOCYTES # (AUTO) 1.2 X10'3 (1.1-4.8); LYMPHOCYTES % (AUTO) 21.1 % (21-51); MEAN CORPUSCULAR HEMOGLOBIN 32.5 PG (27.0-31.0); MEAN CORPUSCULAR HGB CONC 33.9 g/dL (33.0-36.5); MEAN CORPUSCULAR VOLUME 95.6 FL (78-98); MEAN PLATELET VOLUME 7.8 FL (7.4-10.4); MONOCYTES # (AUTO) 0.3 X10'3 (0-0.9); MONOCYTES % (AUTO) 4.3 % (2-12); NEUTROPHILS # (AUTO) 4.3 X10'3 (1.8-7.7); NEUTROPHILS % (AUTO) 73.2 % (42-75); PLATELET COUNT 251 X10'3 (140-440); RED BLOOD COUNT 4.03 X10'6 (4.20-5.60); RED CELL DISTRIBUTION WIDTH 12.5 % (11.5-14.5); WHITE BLOOD COUNT 5.8 X10'3 (4.5-11.0)
[2022-03-22 09:22] VITALS: BP 107/68
[2022-03-22 09:26] LABS: ALANINE AMINOTRANSFERASE 67 U/L (12-78); ALBUMIN 3.3 G/DL (3.4-5.0); ALBUMIN/GLOBULIN RATIO 0.8 (1.1-1.5); ALKALINE PHOSPHATASE 90 IU/L (46-116); ANION GAP 7 (8-16); ASPARTATE AMINO TRANSFERASE 29 U/L (10-37); BILIRUBIN,TOTAL 0.4 MG/DL (0.1-1.0); BLOOD UREA NITROGEN 14 MG/DL (7-18); CALCIUM 8.7 MG/DL (8.5-10.1); CHLORIDE 100 MMOL/L (99-107); GLUCOSE 141 MG/DL (70-104); POTASSIUM 3.8 MMOL/L (3.5-5.1); SODIUM 133 MMOL/L (135-145); TOTAL CARBON DIOXIDE 26.5 MMOL/L (24-32); TOTAL PROTEIN 7.6 G/DL (6.4-8.2); eGFR > 90 ML/MIN
== END 2022-03-22 10:46 | disposition home or self-care (01) ==
LOC: ER 08:34
DX: T17.908A Unspecified foreign body in respiratory tract, part unspecified causing other injury, initial encounter (principal); Z79.899 Other long term (current) drug therapy; Z79.82 Long term (current) use of aspirin; Z79.2 Long term (current) use of antibiotics; X58.XXXA Exposure to other specified factors, initial encounter; Y93.89 Activity, other specified; Y92.89 Other specified places as the place of occurrence of the external cause; Y99.8 Other external cause status
CPT/HCPCS: 36415; 71045; 80053; 85025; 93005; 99285

== ENCOUNTER 2022-12-02 11:15 | Day surgery (SDC) | payer MEDICAID ==
[~2022-12-02] VITALS: Ht 165.1 cm; Wt 48.4 kg
[2022-12-02] MEDS ORDERED: iohexol 350MG/ML 100ml bottle IV ONE (11:27)
[2022-12-02] MEDS ORDERED: normal saline 1000ml 1,000 ML IV PRN (11:40)
== END 2022-12-02 12:15 | disposition home or self-care (01) ==
LOC: SSTAY O 11:15
PROVIDERS: ATTEND Radiology Vascular & Interventional Radiology
DX: Z43.1 Encounter for attention to gastrostomy (principal); Z53.8 Procedure and treatment not carried out for other reasons; G80.9 Cerebral palsy, unspecified
CPT/HCPCS: 74018; Q9967; 43762

== ENCOUNTER 2023-03-03 11:06 | Day surgery (SDC) | payer MEDICAID ==
[~2023-03-03 11:06] MED LIST changes: +iohexol 300 MG/1 ML 50ml polymer ONE
[2023-03-03 11:45] VITALS: BP 145/84
[2023-03-03 11:50] VITALS: BP 137/78
[2023-03-03 12:05] VITALS: BP 145/84
== END 2023-03-03 12:15 | disposition home or self-care (01) ==
LOC: SSTAY O 11:06
PROVIDERS: ATTEND Radiology Diagnostic Radiology
DX: Z43.1 Encounter for attention to gastrostomy (principal); G80.9 Cerebral palsy, unspecified; Z79.899 Other long term (current) drug therapy
CPT/HCPCS: 43762; 74018; B4087; Q9967

== ENCOUNTER 2023-06-04 11:31 | Day surgery (SDC) | payer MEDICAID ==
[~2023-06-04] VITALS: Ht 165.1 cm; Wt 58.3 kg
[~2023-06-04 11:31] MED LIST changes: -ACET325T57 PEG; -LACT1CAP65 PEG; -SIME80TA15 PEG; -VALP250S3 PEG; -iohexol 300 MG/1 ML 50ml polymer ONE
[2023-06-04 11:40] VITALS: BP 112/66; PULSE 66; RESP 18; TEMP 98.5; O2SAT 95
[2023-06-04 11:55] VITALS: O2SAT 95
[2023-06-04] MEDS ORDERED: normal saline 1000ml 1,000 ML IV PRN (11:55)
== END 2023-06-04 12:28 | disposition home or self-care (01) ==
LOC: SSTAY O 11:31
PROVIDERS: ATTEND Radiology Vascular & Interventional Radiology
DX: Z43.1 Encounter for attention to gastrostomy (principal); G80.9 Cerebral palsy, unspecified; K21.9 Gastro-esophageal reflux disease without esophagitis; G40.909 Epilepsy, unspecified, not intractable, without status epilepticus; F71 Moderate intellectual disabilities; M81.0 Age-related osteoporosis without current pathological fracture; R63.6 Underweight; Z68.1 Body mass index [BMI] 19.9 or less, adult; Z79.899 Other long term (current) drug therapy
CPT/HCPCS: 43762; 74018

== ENCOUNTER 2023-07-13 15:44 | Emergency (ER) | payer MEDICAID ==
[~2023-07-13] VITALS: Ht 162.6 cm; Wt 52.0 kg
[2023-07-13 16:33] VITALS: TEMP 97.3; O2SAT 100
[2023-07-13 18:15] VITALS: BP 137/81; PULSE 82
[2023-07-13 18:18] VITALS: RESP 16
--- NOTE | 2023-07-13 18:19 | NUR ---
MAIL SERVICE COORDINATOR CHARTING REVIEWED BY CHARGE, RN - ADDITIONAL CHARTING ENTERED BY BOWLING PIN SETTERS INSTALLER
== END 2023-07-13 18:19 | disposition home or self-care (01) ==
LOC: ER 15:45
DX: T18.0XXA Foreign body in mouth, initial encounter (principal); X58.XXXA Exposure to other specified factors, initial encounter; Y93.89 Activity, other specified; Y92.89 Other specified places as the place of occurrence of the external cause; Y99.8 Other external cause status
CPT/HCPCS: 70360; 71045; 99284

== ENCOUNTER 2023-09-03 11:38 | Day surgery (SDC) | payer MEDICAID ==
[~2023-09-03] VITALS: Ht 165.1 cm; Wt 55.0 kg
[2023-09-03] MEDS ORDERED: normal saline 1000ml 1,000 ML IV PRN (12:00)
[2023-09-03] MEDS ORDERED: LACT1CAP65 PO (12:08)
[2023-09-03 12:11] VITALS: BP 117/76; PULSE 70; RESP 16; TEMP 97.7; O2SAT 100
[2023-09-03 12:12] VITALS: BP 117/76; PULSE 70; RESP 16; TEMP 97.7
[2023-09-03 12:21] VITALS: RESP 16; O2SAT 100
[2023-09-03] MEDS ORDERED: iohexol 300 MG/1 ML 50ml polymer ONE (12:28)
== END 2023-09-03 13:10 | disposition home or self-care (01) ==
LOC: SSTAY O 11:38
PROVIDERS: ATTEND Radiology Vascular & Interventional Radiology
DX: Z43.1 Encounter for attention to gastrostomy (principal); G80.9 Cerebral palsy, unspecified; K21.9 Gastro-esophageal reflux disease without esophagitis; G40.909 Epilepsy, unspecified, not intractable, without status epilepticus; Z79.899 Other long term (current) drug therapy
CPT/HCPCS: 43762; 74018; B4087; Q9967

== ENCOUNTER 2024-11-20 08:35 | Emergency (ER) | payer MEDICAID ==
[~2024-11-20] VITALS: Ht 162.6 cm; Wt 54.5 kg
[~2024-11-20 08:35] MED LIST changes: +LACT1CAP65 PO; +ONDA-245 PEG; -ONDA8TAB13 PEG; +RISP-32 PEG; -RISP2TAB85 PEG
[2024-11-20 10:40] VITALS: O2SAT 96
[2024-11-20] MEDS ORDERED: ERYT1OIN6 EACHEYE (11:17)
[2024-11-20 11:52] LABS: BASOPHILS % (AUTO) 0.3 % (0-1); EOSINOPHILS % (AUTO) 0.5 % (0-6); HEMATOCRIT 41.8 % (35.0-45.0); HEMOGLOBIN 14.1 g/dl (12.0-16.0); LYMPHOCYTES # (AUTO) 0.9 X10'3 (1.1-4.8); LYMPHOCYTES % (AUTO) 13.6 % (21-51); MEAN CORPUSCULAR HEMOGLOBIN 33.4 PG (27.0-31.0); MEAN CORPUSCULAR HGB CONC 33.8 g/dL (33.0-36.5); MEAN CORPUSCULAR VOLUME 98.7 FL (78-98); MONOCYTES # (AUTO) 0.4 X10'3 (0-0.9); MONOCYTES % (AUTO) 6.8 % (2-12); NEUTROPHILS # (AUTO) 5.1 X10'3 (1.8-7.7); NEUTROPHILS % (AUTO) 78.8 % (42-75); PLATELET COUNT 238 X10'3 (140-440); RED BLOOD COUNT 4.23 X10'6 (4.20-5.60); RED CELL DISTRIBUTION WIDTH 12.5 % (11.5-14.5); WHITE BLOOD COUNT 6.5 X10'3 (4.5-11.0)
[2024-11-20 12:13] LABS: ALBUMIN 3.3 G/DL (3.4-5.0); ANION GAP 8 (8-16); BLOOD UREA NITROGEN 11 MG/DL (7-18); BUN/CREATININE RATIO 23.4 (10.0-20.0); CALCIUM 9.5 MG/DL (8.5-10.1); CHLORIDE 98 MMOL/L (99-107); CREATININE 0.47 MG/DL (0.40-0.90); GLUCOSE 101 MG/DL (70-104); POTASSIUM 4.1 MMOL/L (3.5-5.1); PRO BRAIN NATRIURETIC PEPTIDE 77 PG/ML (0-125); SODIUM 133 MMOL/L (135-145); TOTAL CARBON DIOXIDE 26.9 MMOL/L (24-32); eCRCL 134 ML/MIN; eGFR > 90 ML/MIN
[2024-11-20] MEDS ORDERED: CROM10DR7 OP (12:16)
[2024-11-20 12:27] VITALS: BP 124/77; PULSE 68; RESP 18; TEMP 97.6
== END 2024-11-20 12:29 | disposition home or self-care (01) ==
LOC: ER 08:35
DX: R05.9 Cough, unspecified (principal); Z79.899 Other long term (current) drug therapy
CPT/HCPCS: 36415; 71045; 80048; 83605; 83880; 85025; 87040; 99284

== ENCOUNTER 2025-02-06 13:43 | Emergency (ER) | payer MEDICAID ==
[~2025-02-06] VITALS: Ht 165.1 cm; Wt 67.5 kg
[~2025-02-06 13:43] MED LIST changes: +CROM10DR7 OP
--- NOTE | 2025-02-06 14:21 | Physician Documentation ---
History of Present Illness Chief Complaint: See Chief Complaint Stated Complaint: R SIDE FACIAL SWELLING/LIP SWELLING/UNK INJURY Primary Medical Doctor: main campus medical [facility] Source: patient, family, RN/MD Mode of Arrival: Wheelchair HPI Patient is seen today with caregiver with concern for a ground level fall and head strike within the last 24 hours. Patient is nonverbal and non communicative. Patient has history of cerebral palsy. Patient does not currently take any blood thinners. They are also concerned about redness and discharge from the patient's right eye. They have no other concern or complaint at this time. They deny any significant changes from patient baseline including mentation and mental status and agitation level. Medication Reconciliation Allergies: Coded Allergies: No Known Drug Allergies (Verified Allergy, Unknown, 11/20/24) Scheduled Ascorbic Acid (Ascorbic Acid), 2 TAB PEG DAILY, (Reported) Calcium Carbonate (Tums), 1 TAB PEG TID, (Reported) Carbamide Peroxide (Debrox), 5 DROP EACH EAR Monthly, (Reported) Cromolyn Sodium (Cromolyn Sodium), 2 DROP OP BID Docusate Sodium (Docusate Sodium), 30 ML PEG DAILY, (Reported) Escitalopram Oxalate (Escitalopram Oxalate), 1 TAB PEG DAILY, (Reported) Famotidine (Famotidine), 1 TABLET PEG BID, (Reported) Fluticasone Propionate (Fluticasone Propionate), 2 SPRAYS BOTHNARES DAILY, (Reported) Ipratropium [place] Nasal [place]* (Atrovent Nasal [place]*), 2 SPRAY NA TID, ( Reported) Lactobacillus Acidophilus (Probiotic), 1 EACH PO DAILY, (Reported) Levetiracetam (Keppra), 5 ML PEG BID, (Reported) Neomy Sulf/Bacitra/Polymyxin B (Brant-Polycin Eye Ointment), 2 CM OP TID Norethindrone-Ethinyl Estrad (Nortrel 1-35 28 Tablet), 1 TAB PEG DAILY, (Reported) Polyvinyl Alcohol/Povidone (Refresh Eye Drops), 1 EACH OP BID, (Reported) Risperidone (Risperidone), 1 TAB PEG BID, (Reported) Scopolamine Hydrobromide (Transderm-Scop), 1 PATCH TOP Q72H, (Reported) [ACT Flouride rinse], 5 ML PO DAILY, (Reported) Scheduled PRN Albuterol Sulfate (Albuterol Sulfate), 1 VIAL NEB Q6H PRN for SOB or wheezing, (Reported) Bisacodyl (Dulcolax), 1 SUPP RC DAILY PRN for constipation, (Reported) Ipratropium [place] Neb* (Atrovent Neb*), 1 VIAL NEB Q6H PRN for SOB or wheezing, (Reported) Loratadine (Loratadine), 1 TAB PEG DAILY PRN for allergies, (Reported) Magnesium Hydroxide (Milk of Magnesia), 30 ML PEG DAILY PRN for constipation, (Reported) Naproxen Sodium (Aleve), 220 MG PEG BID PRN for pain, (Reported) Nystatin (NYSTOP powder), 1 APPLIC TP PRN PRN for reddened G-tube, (Reported) Ondansetron 8mg ODT (Ondansetron Odt), 1 TAB PEG Q8H PRN for nausea/vomiting, (Reported) Past Medical History Past Medical History: *PROGRAM MANAGER SLP* Past Surgical History: other Lives In: Assisted Care Occupation: disabled Review of Systems Constitutional: Denies: chills, fever, weakness Eyes: Denies: pain, blurred vision ENT: Denies: ear pain, nose pain, throat pain, mouth pain Respiratory: Denies: cough, shortness of breath Cardiovascular: Denies: chest pain, palpitations Gastrointestinal: Denies: abdominal pain, nausea, vomiting Genitourinary: Denies: burning, dysuria Female Genitalia: Denies: vaginal discharge, pelvic pain Neurological: Denies: headache, dizziness Musculoskeletal: Denies: pain, swelling Integumentary: Denies: rash, lesions Allergic/Immunologic: Denies: hives, itching Hematologic/Lymphatic: Denies: no symptoms reported Psychiatric: Denies: depression, anxiety Physical Exam Vital Signs: Temperature: 97.6, Heart Rate: 66, Respiratory Rate: 15, BP: 133/92, Pulse Oximetry: 94, Weight: 67.500 Oxygen Flow Rate: 0 Physical Exam General: Awake and Alert, no acute distress. Patient is non communicative but is currently resting comfortably in bed lying flat on her back. HEENT: Patient does have some mild swelling and very mild ecchymosis of her lips on the right side with mild petechiae present of upper and lower lip on the right side. Patient has injected sclera of the right eye with discharge from the right eye. Patient does have very mild swelling appreciated of the surrounding left eye and left eyebrow without any significant fluid collection palpable. Conjunctiva pink, Sclera clear, Mucus Membranes moist. Neck: Supple without masses and tenderness. Resp: Unlabored. Lungs clear to auscultation bilaterally. Heart: Regular Rate and rhythm, normal S1 and S2 without murmur, rub or gallop. Abdomen: Soft and non tender no organomegaly Extremities: No cyanosis,clubbing or edema. I do not appreciate any gross deformities aside from her chronic deformities. I do not appreciate any acute bony deformities or significant tenderness to palpation of either bilateral upper or bilateral lower extremities. Skin: Warm and Dry. Progress Results/Orders Results/Orders Vital Signs 02/06/25 13:50 Temp 97.6 Pulse 66 Resp 15 B/P (MAP) 133/92 Pulse Ox 94 O2 Flow Rate 0 EKG/XRAY/CT/US/VASC/MRI CT : Impression CAT SCAN Patient: AMADEO CARLISLE Medical Record: [id number] : 1980, Age: 44 Sex: Female Location: ER Patient Status: REG ER Service Date/Time: 02/06/251632 Ordering Physician: JENNIFER DAVIS PAC Exam: CT CERVICAL SPINE EXAM: CT CT CERVICAL SPINE INDICATION: head strike EXAM DATE: 02/06/2025 04:27 PM COMPARISON: None TECHNIQUE: Multiple axial CT images of the cervical spine were obtained using bone algorithm. Axial and coronal reformatting was done. Bone and soft tissue windows were reviewed. Radiation Dose Information: CT Dose: CTDI volume is wall 43.68 mGy. Dose-length product is mGy*cm FINDINGS: 7 [id number] cervical type vertebrae. Straightening of the cervical lordosis. Motion artifact limits evaluation of C3 and C4. Otherwise, no evidence of acute traumatic fractures or spondylolisthesis. No significant degenerative changes are identified. There is no prevertebral soft tissue swelling. Thyroid gland is unremarkable. The lung apices are clear. IMPRESSION: Motion artifact limits evaluation of C3 and C4. Otherwise, no evidence of acute traumatic fractures or spondylolisthesis. Electronically Signed by:MADELEINE RUVALCABA DO Date & Time: 02/06/251702 Dictated by: MADELEINE RUVALCABA DO Dictation date and time: 02/06/251702 Primary Care Provider: NO PRIMARY CARE PROVIDER cc: JENNIFER DAVIS PAC ~ CAT SCAN Patient: AMADEO CARLISLE Medical Record: [id number] : 1980, Age: 44 Sex: Female Location: ER Patient Status: REG ER Service Date/Time: 02/06/251633 Ordering Physician: JENNIFER DAVIS PAC Exam: CT FACIAL BONES/SOFT TISSUE CT CT FACIAL BONES/SOFT TISSUE INDICATION: head strike TECHNIQUE: Noncontrast axial images of the facial bones are then obtained along with coronal and sagittal reformatted images. All CT scans at this facility use dose modulation, iterative reconstruction, and/or weight based dosing when appropriate to reduce radiation dose to as low as reasonably achievable. COMPARISON: None FINDINGS: Distorted anatomy secondary to patient motion. FACIAL BONES: The nasal, lacrimal, inferior nasal nate, and palatine bones are intact. The vomer and perpendicular plate of the ethmoid are intact. The zygomatic bones are intact. The maxilla is intact. The mandible is intact. PARANASAL SINUSES: The bony margins of the paranasal sinuses are intact. There is no air fluid level within the sinuses. Paranasal sinus minimal mucosal thickening. ORBITS: The right and left globes are intact. The bony margins of the orbits are intact. The extraconal space is intact without inflammatory stranding of the extraconal fat. The extraocular muscles are symmetric. The intraconal space including the optic canal and nerve are symmetric. OTHER: Mild degenerative change of bilateral temporomandibular joints. IMPRESSION: 1. No CT evidence of an acute facial fracture. Electronically Signed by:PIPPA RODRÍGUEZ MD Date & Time: 02/06/251702 Dictated by: PIPPA RODRÍGUEZ MD Dictation date and time: 02/06/251632 Primary Care Provider: NO PRIMARY CARE PROVIDER cc: JENNIFER DAVIS PAC ~ CAT SCAN Patient: AMADEO CARLISLE Medical Record: [id number] : 1980, Age: 44 Sex: Female Location: ER Patient Status: [facility] ER Service Date/Time: 02/06/251633 Ordering Physician: JENNIFER DAVIS PAC Exam: CT HEAD EXAM: CT CT HEAD INDICATION: head strike TECHNIQUE: CT of the head without intravenous contrast. Radiation Dose : 1. Head: CT Dose: CTDI volume is 88 mGy. Dose-length product is 1643 mGy*cm The dose indicators for CT are the volume Computed Tomography (CT) Dose Index (CTDIvol) and the Dose Length Product (DLP), and are measured in units of mGy and mGy-cm, respectively. These indicators are not patient dose, but values generated from the CT scanner acquisition factors. The report includes radiation exposure data for exposures received during this examination. COMPARISON: None FINDINGS: Severe motion artifact markedly degrades the imaging. No hydrocephalus No shift of the midline structures. Normal 4th ventricle. If clinical symptoms persist, MRI imaging may be helpful. No calvarial fracture No sinusitis IMPRESSION: 1. Limited exam secondary to marked motion artifact Normal ventricles No large subdural hematoma No shift of the midline structures Radiation optimization: All CT scans at this facility use at least one of these dose optimization techniques: automated exposure control mA and/or kV adjustment per patient size (includes targeted exams where dose is matched to clinical indication) or iterative reconstruction. Electronically Signed by:JAMILA BUCK MD Date & Time: 02/06/251649 Dictated by: JAMILA BUCK MD Dictation date and time: 02/06/251649 Primary Care Provider: NO PRIMARY CARE PROVIDER cc: JENNIFER DAVIS PAC ~ Medical Decision Making Findings Patient is seen today with caregiver with concern for a ground level fall and head strike within the last 24 hours. Patient is nonverbal and non communicative. Patient has history of cerebral palsy. Patient does not currently take any blood thinners. They are also concerned about redness and discharge from the patient's right eye. They have no other concern or complaint at this time. They deny any significant changes from patient baseline including mentation and mental status and agitation level. Patient did have CT scan of head, facial bones and structures and soft tissues, and C-spine which all came back unremarkable and without any sign of an acute changes or acute injury or disease. Patient was administered ophthalmic ointment antibacterial with steroid in the ED today. Prescription of the same was sent to patient's pharmacy to be used as directed at [facility]. Patient will return to ED with any worsening, concerning or changing symptoms. Departure Disposition: 01 HOME / SELF CARE / HOMELESS Impression: Primary Impression: Bacterial conjunctivitis of right eye Additional Impression: Ground-level fall Condition: Improved Discharge Instructions: Bacterial Conjunctivitis, Adult, [id number] Additional Instructions: Patient did have CT scan of head, facial bones and structures and soft tissues, and C-spine which all came back unremarkable and without any sign of an acute changes or acute injury or disease. Patient was administered ophthalmic ointment antibacterial with steroid in the ED today. Prescription of the same was sent to patient's pharmacy to be used as directed at [facility]. Patient will r eturn to ED with any worsening, concerning or changing symptoms. Referrals: NO PRIMARY CARE PROVIDER (PCP) Prescriptions Neomy Sulf/Bacitra/Polymyxin B (Brant-Polycin Eye Ointment) 3.5 Mg-400 Unit-10,000 Unit/Gram Oint...g. 2 CM OP TID for 10 Days, #1 TUBE Prov: JENNIFER DAVIS PAC 02/06/25 Signature Scribe Signature: No scribe Attestation: No scribe SARAH DENNEY NP February 06, 2025 14:21 JENNIFER DAVIS February 06, 2025 16:14
[2025-02-06 15:39] LABS: BASOPHILS % (AUTO) 1.1 % (0-1); EOSINOPHILS # (AUTO) 0.2 X10'3 (0-0.9); EOSINOPHILS % (AUTO) 4.3 % (0-6); HEMATOCRIT 41.3 % (35.0-45.0); HEMOGLOBIN 14.1 g/dl (12.0-16.0); LYMPHOCYTES # (AUTO) 1.1 X10'3 (1.1-4.8); LYMPHOCYTES % (AUTO) 25.9 % (21-51); MEAN CORPUSCULAR HEMOGLOBIN 32.9 PG (27.0-31.0); MEAN CORPUSCULAR HGB CONC 34.2 g/dL (33.0-36.5); MEAN CORPUSCULAR VOLUME 96.2 FL (78-98); MEAN PLATELET VOLUME 7.8 FL (7.4-10.4); MONOCYTES # (AUTO) 0.6 X10'3 (0-0.9); MONOCYTES % (AUTO) 13.7 % (2-12); NEUTROPHILS # (AUTO) 2.3 X10'3 (1.8-7.7); PLATELET COUNT 240 X10'3 (140-440); RED BLOOD COUNT 4.29 X10'6 (4.20-5.60); RED CELL DISTRIBUTION WIDTH 12.5 % (11.5-14.5); WHITE BLOOD COUNT 4.2 X10'3 (4.5-11.0)
[2025-02-06 15:47] LABS: ALANINE AMINOTRANSFERASE 63 U/L (12-78); ALBUMIN 3.1 G/DL (3.4-5.0); ALBUMIN/GLOBULIN RATIO 0.6 (1.1-1.5); ALKALINE PHOSPHATASE 142 IU/L (46-116); ANION GAP 6 (8-16); ASPARTATE AMINO TRANSFERASE 31 U/L (10-37); BILIRUBIN,TOTAL 0.4 MG/DL (0.1-1.0); BLOOD UREA NITROGEN 13 MG/DL (7-18); BUN/CREATININE RATIO 19.4 (10.0-20.0); CALCIUM 9.2 MG/DL (8.5-10.1); CHLORIDE 101 MMOL/L (99-107); CREATININE 0.67 MG/DL (0.40-0.90); GLUCOSE 89 MG/DL (70-104); LIPASE 90 U/L (16-77); POTASSIUM 4.2 MMOL/L (3.5-5.1); SODIUM 137 MMOL/L (135-145); TOTAL CARBON DIOXIDE 30.4 MMOL/L (24-32); TOTAL PROTEIN 7.9 G/DL (6.4-8.2); eCRCL 98 ML/MIN; eGFR > 90 ML/MIN
[2025-02-06] MEDS ORDERED: POLYMYX B RIGHTEYE STA (16:12)
[2025-02-06] MEDS ORDERED: NEOMY SULF RIGHTEYE STA (16:12)
[2025-02-06] MEDS ORDERED: [UNRECOGNIZED DRUG - OTHER] RIGHTEYE STA (16:12)
[2025-02-06] MEDS ORDERED: NEOM3.5O31 OP (16:17)
--- NOTE | 2025-02-06 16:53 | RADIOLOGY REPORT ---
EXAM: CT CT HEAD INDICATION: head strike TECHNIQUE: CT of the head without intravenous contrast. Radiation Dose : 1. Head: CT Dose: CTDI volume is 88 mGy. Dose-length product is 1643 mGy*cm The dose indicators for CT are the volume Computed Tomography (CT) Dose Index (CTDIvol) and the Dose Length Product (DLP), and are measured in units of mGy and mGy-cm, respectively. These indicators are not patient dose, but values generated from the CT scanner acquisition factors. The report includes radiation exposure data for exposures received during this examination. COMPARISON: None FINDINGS: Severe motion artifact markedly degrades the imaging. No hydrocephalus No shift of the midline structures. Normal 4th ventricle. If clinical symptoms persist, MRI imaging may be helpful. No calvarial fracture No sinusitis IMPRESSION: 1. Limited exam secondary to marked motion artifact Normal ventricles No large subdural hematoma No shift of the midline structures Radiation optimization: All CT scans at this facility use at least one of these dose optimization javi hniques: automated exposure control mA and/or kV adjustment per patient size (includes targeted exam s where dose is matched to clinical indication) or iterative reconstruction.
--- NOTE | 2025-02-06 17:05 | RADIOLOGY REPORT ---
EXAM: CT CT CERVICAL SPINE INDICATION: head strike EXAM DATE: 02/06/2025 04:27 PM COMPARISON: None TECHNIQUE: Multiple axial CT images of the cervical spine were obtained using bone algorithm. Axial a nd coronal reformatting was done. Bone and soft tissue windows were reviewed. Radiation Dose Information: CT Dose: CTDI volume is wall 43.68 mGy. Dose-length product is mGy*cm FINDINGS: 7 [id number] cervical type vertebrae. Straightening of the cervical lordosis. Motion artifact l imits evaluation of C3 and C4. Otherwise, no evidence of acute traumatic fractures or spondylolisthes is. No significant degenerative changes are identified. There is no prevertebral soft tissue swelling. Thyroid gland is unremarkable. The lung apices are jj ar. IMPRESSION: Motion artifact limits evaluation of C3 and C4. Otherwise, no evidence of acute traumatic fractures or spondylolisthesis.
--- NOTE | 2025-02-06 17:05 | RADIOLOGY REPORT ---
CT CT FACIAL BONES/SOFT TISSUE INDICATION: head strike TECHNIQUE: Noncontrast axial images of the facial bones are then obtained along with coronal and sagi ttal reformatted images. All CT scans at this facility use dose modulation, iterative reconstruction, and/or weight based dosing when appropriate to reduce radiation dose to as low as reasonably achieva ble. COMPARISON: None FINDINGS: Distorted anatomy secondary to patient motion. FACIAL BONES: The nasal, lacrimal, inferior nasal nate, and palatine bones are intact. The vomer an d perpendicular plate of the ethmoid are intact. The zygomatic bones are intact. The maxilla is intac t. The mandible is intact. PARANASAL SINUSES: The bony margins of the paranasal sinuses are intact. There is no air fluid level within the sinuses. Paranasal sinus minimal mucosal thickening. ORBITS: The right and left globes are intact. The bony margins of the orbits are intact. The extracon al space is intact without inflammatory stranding of the extraconal fat. The extraocular muscles are symmetric. The intraconal space including the optic canal and nerve are symmetric. OTHER: Mild degenerative change of bilateral temporomandibular joints. IMPRESSION: 1. No CT evidence of an acute facial fracture.
[2025-02-06] MEDS: neomy/polymyx B/dexamethasone ophth ointment 3.5gm RIGHTEYE STA (17:20)
[2025-02-06 17:56] VITALS: BP 127/83; PULSE 76; RESP 16; TEMP 98.6; O2SAT 96
== END 2025-02-06 17:58 | disposition home or self-care (01) ==
LOC: ER 13:44
DX: H10.89 Other conjunctivitis (principal); Z79.899 Other long term (current) drug therapy; W18.30XA Fall on same level, unspecified, initial encounter; Y93.89 Activity, other specified; Y92.89 Other specified places as the place of occurrence of the external cause; Y99.8 Other external cause status
CPT/HCPCS: 36415; 70450; 70486; 72125; 80053; 83690; 85025; 99284